=== PATIENT | male | born 1940 | race Caucasian/White ===

== ENCOUNTER 2017-11-03 13:54 | Emergency (ER) | payer OTHER ==
[~2017-11-03] VITALS: Ht 177.8 cm; Wt 110.2 kg
[~2017-11-03 13:54] MED LIST: ASPI325 PO; BUDE6HFA INH; CARV6.25 PO; CLOP75 PO; Cipro500 MG PO; DOCU100 PO; Diabeta2.5 MG PO; ERGO400 PO; Flomax0.4 MG PO; GLIP2.5ER; GLYB1.5 PO; GLYB5 PO; HTN; LISI5 PO; LIVALO2 MG PO; METF500 PO; METF850; METF850 PO; METO10 PO; MULTI-VITAMIN1 EACH PO; MULVIT PO; OMEP20ER; ONDA4 PO; OXYACE5T PO; PROAIR RESPICL90 MCG INH; Prinivil10 MG PO; RANI150 PO; RANO500T PO; TAMS.4ER PO; Toprol Xl25 MG PO; [UNRECOGNIZED DRUG - REMARK]
[2017-11-03] MEDS ORDERED: GLIM2 PO (14:21)
[2017-11-03] MEDS ORDERED: LIVALO2 MG PO (14:21)
[2017-11-03] MEDS ORDERED: CEFTIN PO (14:23)
[2017-11-03] MEDS ORDERED: METF850 PO (14:23)
[2017-11-03 15:02] LABS: BASOPHILS ABSOLUTE AUTO 0.06 K/mm3 (0.00-0.23); BASOPHILS PERCENT AUTO 0 % (0-2); EOSINOPHILS PERCENT AUTO 1 % (0-6); Hematocrit 44.1 % (37.0-53.0); Hemoglobin 14.2 g/dL (13.5-17.5); IMMATURE GRAN PERCENT AUTO 1 % (0-1); LYMPHOCYTES ABSOLUTE AUTO 1.66 K/mm3 (0.84-5.20); LYMPHOCYTES PERCENT AUTO 12 % (21-46); MONOCYTES ABSOLUTE AUTO 1.11 K/mm3 (0.16-1.47); MONOCYTES PERCENT AUTO 8 % (4-13); Mean Corpuscular HGB 31.7 pg (26.0-34.0); Mean Corpuscular HGB Conc 32.2 g/dL (31.5-36.5); Mean Corpuscular Volume 98 fL (80-100); Mean Platelet Volume 11.9 fL (9.1-12.4); NEUTROPHILS ABSOLUTE AUTO 10.81 K/mm3 (1.96-9.15); NEUTROPHILS PERCENT AUTO 78 % (41-73); Platelet Count 233 K/mm3 (150-400); RDW Standard Deviation 46.5 fL (35.1-46.3); Red Blood Cell Count 4.48 M/mm3 (4.30-5.90); White Blood Cell Count 13.94 K/mm3 (4.00-11.30)
[2017-11-03 15:07] LABS: Base Excess Venous 0.8 mmol/L; Bicarbonate Venous 24.3 mmol/L (24.0-30.0); PCO2 Venous 50.7 mmHg (38-42); PO2 Venous 71.8 mmHg (38-42); pH Blood Venous 7.33 (7.34-7.37)
[2017-11-03 15:19] LABS: Alanine Aminotransfer (ALT/SGP 28 U/L (12-78); Albumin, Blood 3.2 g/dL (3.4-5.0); Albumin/Globulin Ratio 0.7 (0.8-1.8); Alk Phos 115 U/L (50-136); Anion Gap 7 mmol/L (6-16); Aspartate Aminotrans (AST/SGOT 23 U/L (12-37); Bilirubin, Total 0.2 mg/dL (0.1-1.0); Blood Urea Nitrogen 24 mg/dL (8-24); Bun/Creatinine Ratio 21.1 (12.0-20.0); CO2, Blood 27 mmol/L (21-32); Calcium, Blood 9.3 mg/dL (8.5-10.1); Chloride, Blood 106 mmol/L (98-108); Creatinine, Blood 1.14 mg/dL (0.60-1.20); Globulin, Blood 4.3 g/dL (2.2-4.0); Glomerular Filtration Rate >60 (60-); Glucose, Blood 132 mg/dL (70-99); Magnesium, Blood 1.9 mg/dL (1.6-2.4); Potassium, Blood 4.2 mmol/L (3.5-5.5); Sodium, Blood 140 mmol/L (136-145); Total Protein, Blood 7.5 g/dL (6.4-8.2)
[2017-11-03 15:24] LABS: Troponin I <0.015 ng/mL (0.000-0.040)
== END 2017-11-03 16:17 | disposition home or self-care (01) ==
LOC: ER 13:54
PROVIDERS: Emergency Medicine
DX: R41.0 Disorientation, unspecified (principal); N48.22 Cellulitis of corpus cavernosum and penis; Z88.5 Allergy status to narcotic agent; Z91.018 Allergy to other foods; Z88.8 Allergy status to other drugs, medicaments and biological substances; Z79.899 Other long term (current) drug therapy; Z79.84 Long term (current) use of oral hypoglycemic drugs; Z79.82 Long term (current) use of aspirin; Z87.891 Personal history of nicotine dependence
CPT/HCPCS: 36415; 70450; 71046; 76857; 80053; 82803; 83735; 83880; 84443; 84484; 85025; 93005; 93010; 96360; 96361; 99284; J7030

== ENCOUNTER 2018-12-15 18:16 | Inpatient (IN) | payer OTHER ==
[~2018-12-15] VITALS: Ht 177.8 cm; Wt 114.0 kg
[~2018-12-15 18:16] MED LIST changes: -ASPI325 PO; +ASPI325EC PO; +Amaryl1 MG PO; +CEFTIN PO; +FAMO20 PO
[2018-12-15 18:55] LABS: BASOPHILS ABSOLUTE AUTO 0.06 K/mm3 (0.00-0.23); BASOPHILS PERCENT AUTO 0 % (0-2); EOSINOPHILS ABSOLUTE AUTO 0.01 K/mm3 (0.00-0.68); EOSINOPHILS PERCENT AUTO 0 % (0-6); Hematocrit 46.8 % (37.0-53.0); IMMATURE GRAN ABSOLUTE AUTO 0.11 K/mm3 (0.00-0.10); IMMATURE GRAN PERCENT AUTO 1 % (0-1); LYMPHOCYTES PERCENT AUTO 5 % (21-46); MONOCYTES ABSOLUTE AUTO 1.82 K/mm3 (0.16-1.47); MONOCYTES PERCENT AUTO 9 % (4-13); Mean Corpuscular HGB 31.3 pg (26.0-34.0); Mean Corpuscular HGB Conc 32.1 g/dL (31.5-36.5); Mean Corpuscular Volume 98 fL (80-100); NEUTROPHILS ABSOLUTE AUTO 17.89 K/mm3 (1.96-9.15); NEUTROPHILS PERCENT AUTO 85 % (41-73); Platelet Count 228 K/mm3 (150-400); RDW Coefficient Variation 14.6 % (11.7-14.2); RDW Standard Deviation 53.3 fL (35.1-46.3); Red Blood Cell Count 4.79 M/mm3 (4.30-5.90); White Blood Cell Count 20.99 K/mm3 (4.00-11.30)
[2018-12-15 19:51] LABS: Alanine Aminotransfer (ALT/SGP 25 U/L (12-78); Albumin, Blood 3.3 g/dL (3.4-5.0); Albumin/Globulin Ratio 0.7 (0.8-1.8); Alk Phos 129 U/L (50-136); Anion Gap 10 mmol/L (6-16); Aspartate Aminotrans (AST/SGOT 21 U/L (12-37); Bilirubin, Total 0.5 mg/dL (0.1-1.0); Blood Urea Nitrogen 30 mg/dL (8-24); Bun/Creatinine Ratio 15.7 (12.0-20.0); CO2, Blood 21 mmol/L (21-32); Calcium, Blood 9.3 mg/dL (8.5-10.1); Chloride, Blood 107 mmol/L (98-108); Creatinine, Blood 1.91 mg/dL (0.60-1.20); Globulin, Blood 4.7 g/dL (2.2-4.0); Glomerular Filtration Rate 36 (60-); Glucose, Blood 235 mg/dL (70-99); Potassium, Blood 4.6 mmol/L (3.5-5.5); Sodium, Blood 138 mmol/L (136-145); Troponin I <0.015 ng/mL (0.000-0.040)
[2018-12-15] MEDS ORDERED: Central-Vite1 EAC3 PO (21:11)
[2018-12-15] MEDS ORDERED: LISI5 PO (21:11)
[2018-12-15] MEDS ORDERED: CHOL10002 PO (23:46)
[2018-12-15] MEDS ORDERED: ASCO500 PO (23:46)
[2018-12-15] MEDS ORDERED: ALBU90OI61 INH (23:47)
[2018-12-15] MEDS ORDERED: ACET325 PO (23:48)
[2018-12-15] MEDS ORDERED: YOUNG LIVING OILS TOP (23:50)
[2018-12-15] MEDS ORDERED: [UNRECOGNIZED DRUG - OTHER] TOP (23:51)
[2018-12-15] MEDS ORDERED: NINGXIA RED PO (23:55)
[2018-12-16 05:39] LABS: BASOPHILS ABSOLUTE AUTO 0.03 K/mm3 (0.00-0.23); BASOPHILS PERCENT AUTO 0 % (0-2); EOSINOPHILS PERCENT AUTO 0 % (0-6); Hematocrit 44.1 % (37.0-53.0); Hemoglobin 13.9 g/dL (13.5-17.5); IMMATURE GRAN ABSOLUTE AUTO 0.14 K/mm3 (0.00-0.10); IMMATURE GRAN PERCENT AUTO 1 % (0-1); LYMPHOCYTES ABSOLUTE AUTO 0.51 K/mm3 (0.84-5.20); LYMPHOCYTES PERCENT AUTO 2 % (21-46); MONOCYTES ABSOLUTE AUTO 0.26 K/mm3 (0.16-1.47); MONOCYTES PERCENT AUTO 1 % (4-13); Mean Corpuscular HGB 30.5 pg (26.0-34.0); Mean Corpuscular HGB Conc 31.5 g/dL (31.5-36.5); Mean Corpuscular Volume 97 fL (80-100); Mean Platelet Volume 10.3 fL (9.1-12.4); NEUTROPHILS ABSOLUTE AUTO 19.89 K/mm3 (1.96-9.15); NEUTROPHILS PERCENT AUTO 96 % (41-73); Platelet Count 242 K/mm3 (150-400); RDW Coefficient Variation 14.6 % (11.7-14.2); RDW Standard Deviation 52.4 fL (35.1-46.3); Red Blood Cell Count 4.55 M/mm3 (4.30-5.90); White Blood Cell Count 20.83 K/mm3 (4.00-11.30)
[2018-12-16 05:59] LABS: Albumin, Blood 2.9 g/dL (3.4-5.0); Albumin/Globulin Ratio 0.6 (0.8-1.8); Bilirubin, Total 0.4 mg/dL (0.1-1.0); Bun/Creatinine Ratio 17.5 (12.0-20.0); Calcium, Blood 8.7 mg/dL (8.5-10.1); Creatinine, Blood 1.66 mg/dL (0.60-1.20); Globulin, Blood 4.6 g/dL (2.2-4.0); Potassium, Blood 4.7 mmol/L (3.5-5.5); Total Protein, Blood 7.5 g/dL (6.4-8.2)
--- NOTE | 2018-12-16 06:00 | NUR ---
sHIFT SUMMARY: pT REMAINED ON 2 LITER o2 OVERNIGHT. lUNGS DIMINISHED. Pt has sleep apnea and wakes up often and starts making loud noises and are difficult to understand. His significant other states that he does this at home and is not new. Was unable to get sputum sample last pm- does not have productive cough. Pt on tele- in sinus rhythm 70.
--- NOTE | 2018-12-16 14:18 | NUR ---
pt gave permission to access charts and assist in care on 12/16/2018.
--- NOTE | 2018-12-16 17:45 | NUR ---
SHIFT SUMMARY PT AXO TO SELF, FAMILY AND FOLLOWING DIRECTIONS THOUGH SOME CONFUSION AT TIMES. VSS. PHSYICAL THERAPY IN TO EVALUATE, SEE NOTE. PT UP WITH SBA. IV PATENT AND SALINE LOCKED. PT DENIES SOB THOUGH IS SOB WITH CONVERSATION AND EXERTION. BED IN LOW POSITION, CALL LIGHT WITHIN REACH AND SPOUSE PRESENT IN THE ROOM THROUGHOUT THE DAY.
--- NOTE | 2018-12-17 05:07 | NUR ---
Shift summary: Pt slept well overnight with occasional verbal outburst. at bedside. Pt started with aroma therapy by - states it seems to calm him down. Tolerating antibiotics well. No sputum so unable to get sputum sample. Telemetry on - NSR 78 per case monitor
[2018-12-17 05:14] LABS: BASOPHILS ABSOLUTE AUTO 0.04 K/mm3 (0.00-0.23); BASOPHILS PERCENT AUTO 0 % (0-2); EOSINOPHILS PERCENT AUTO 0 % (0-6); Hematocrit 43.8 % (37.0-53.0); Hemoglobin 13.9 g/dL (13.5-17.5); IMMATURE GRAN PERCENT AUTO 1 % (0-1); LYMPHOCYTES ABSOLUTE AUTO 0.65 K/mm3 (0.84-5.20); LYMPHOCYTES PERCENT AUTO 2 % (21-46); MONOCYTES ABSOLUTE AUTO 0.73 K/mm3 (0.16-1.47); MONOCYTES PERCENT AUTO 3 % (4-13); Mean Corpuscular HGB 30.5 pg (26.0-34.0); Mean Corpuscular HGB Conc 31.7 g/dL (31.5-36.5); Mean Corpuscular Volume 96 fL (80-100); Mean Platelet Volume 10.5 fL (9.1-12.4); NEUTROPHILS ABSOLUTE AUTO 27.37 K/mm3 (1.96-9.15); NEUTROPHILS PERCENT AUTO 94 % (41-73); Platelet Count 238 K/mm3 (150-400); RDW Coefficient Variation 14.6 % (11.7-14.2); RDW Standard Deviation 51.7 fL (35.1-46.3); Red Blood Cell Count 4.56 M/mm3 (4.30-5.90); White Blood Cell Count 29.09 K/mm3 (4.00-11.30)
[2018-12-17 05:55] LABS: Albumin, Blood 2.8 g/dL (3.4-5.0); Albumin/Globulin Ratio 0.6 (0.8-1.8); Bilirubin, Total 0.2 mg/dL (0.1-1.0); Bun/Creatinine Ratio 27.9 (12.0-20.0); Calcium, Blood 8.9 mg/dL (8.5-10.1); Creatinine, Blood 1.36 mg/dL (0.60-1.20); Globulin, Blood 4.6 g/dL (2.2-4.0); Magnesium, Blood 2.4 mg/dL (1.6-2.4); Phosphorus, Blood 2.7 mg/dL (2.5-4.9); Potassium, Blood 4.9 mmol/L (3.5-5.5); Total Protein, Blood 7.4 g/dL (6.4-8.2)
[2018-12-17] MEDS ORDERED: AZIT250 PO (12:35)
[2018-12-17] MEDS ORDERED: GUAI600T33 (12:36)
[2018-12-17] MEDS ORDERED: CEFP200 PO (12:36)
[2018-12-17] MEDS ORDERED: DULERA 200 MCG/13 GM INH (12:37)
[2018-12-17] MEDS ORDERED: THERA1 EACH PO (12:38)
[2018-12-17] MEDS ORDERED: PRED10 (12:40)
--- NOTE | 2018-12-17 14:47 | NUR ---
1355 PT DISCHARGED HOME VIA PERSONAL VEHICLE ACCOMPANIED AND DRIVEN BY FRIEND. PT ESCORTED TO ENTRANCE VIA W/C BY PRODUCT SALES REPRESENTATIVE. IV REMOVED. D/C PAPERWORK REVIEWED WITH PT AND COPY PROVIDED. NEW RX FAXED TO [facility] PER PT REQUEST. NO NEW CHANGES OR CONCERNS.
== END 2018-12-17 13:55 | disposition home or self-care (01) | DRG 202 ==
LOC: ER 18:16 → MEDS 21:20 → ENPENDDIS 12-17 10:52 → MEDS 12-17 13:55
PROVIDERS: Emergency Medicine; Hospitalist; ADMIT Internal Medicine
DX: J20.9 Acute bronchitis, unspecified (principal); N17.9 Acute kidney failure, unspecified; J43.9 Emphysema, unspecified; Z79.82 Long term (current) use of aspirin; Z79.84 Long term (current) use of oral hypoglycemic drugs; I25.10 Atherosclerotic heart disease of native coronary artery without angina pectoris; G89.29 Other chronic pain; G47.33 Obstructive sleep apnea (adult) (pediatric); Z95.1 Presence of aortocoronary bypass graft; K21.9 Gastro-esophageal reflux disease without esophagitis; E11.42 Type 2 diabetes mellitus with diabetic polyneuropathy; N18.3 Chronic kidney disease, stage 3 (moderate); E11.22 Type 2 diabetes mellitus with diabetic chronic kidney disease; E78.5 Hyperlipidemia, unspecified; E66.9 Obesity, unspecified; Z68.34 Body mass index [BMI] 34.0-34.9, adult; I12.9 Hypertensive chronic kidney disease with stage 1 through stage 4 chronic kidney disease, or unspecified chronic kidney disease; Z87.891 Personal history of nicotine dependence; Z91.14 Patient's other noncompliance with medication regimen
CPT/HCPCS: 36415; 71046; 71250; 80053; 82947; 83605; 83735; 84100; 84145; 84484; 85025; 87040; 93005; 93010; 94640; 94644; 94760; 96361; 96365; 96375; 97161; 97165; 97530; 97535; 99285-25; J0456; J0696; J1650; J2930; J7030; J7050

== ENCOUNTER 2019-04-22 09:23 | Emergency (ER) | payer OTHER ==
[~2019-04-22] VITALS: Ht 177.8 cm; Wt 111.1 kg
[~2019-04-22 09:23] MED LIST changes: +ACET325 PO; +ALBU90OI61 INH; +ASCO500 PO; +AZIT250 PO; +CEFP200 PO; +CHOL10002 PO; +Central-Vite1 EAC3 PO; +DULERA 200 MCG/13 GM INH; +GUAI600T33; +NINGXIA RED PO; +PRED10; +THERA1 EACH PO; +YOUNG LIVING OILS TOP; +[UNRECOGNIZED DRUG - OTHER] TOP
== END 2019-04-22 10:50 | disposition home or self-care (01) ==
LOC: ER 09:23
DX: S00.83XA Contusion of other part of head, initial encounter (principal); V43.52XA Car driver injured in collision with other type car in traffic accident, initial encounter; E11.22 Type 2 diabetes mellitus with diabetic chronic kidney disease; N18.9 Chronic kidney disease, unspecified; J44.9 Chronic obstructive pulmonary disease, unspecified; I25.10 Atherosclerotic heart disease of native coronary artery without angina pectoris; K21.9 Gastro-esophageal reflux disease without esophagitis; Z88.5 Allergy status to narcotic agent; Z88.8 Allergy status to other drugs, medicaments and biological substances; Z91.018 Allergy to other foods; Z79.899 Other long term (current) drug therapy; Z79.82 Long term (current) use of aspirin; Z79.84 Long term (current) use of oral hypoglycemic drugs; Z79.52 Long term (current) use of systemic steroids
CPT/HCPCS: 36415; 70450; 80061; 83036; 99284-25

== ENCOUNTER 2019-08-12 14:45 | Inpatient (IN) | payer OTHER ==
[~2019-08-12] VITALS: Ht 177.8 cm; Wt 114.4 kg
[~2019-08-12 14:45] MED LIST changes: -ASCO500 PO; -ASPI325EC PO; -Amaryl1 MG PO; -CHOL10002 PO; -THERA1 EACH PO; -Toprol Xl25 MG PO
[2019-08-12] MEDS ORDERED: LISI5 PO (15:27)
[2019-08-12] MEDS ORDERED: METF500 PO (15:27)
[2019-08-12] MEDS ORDERED: Amaryl1 MG PO (15:27)
[2019-08-12] MEDS ORDERED: Toprol Xl25 MG PO (15:27)
[2019-08-12] MEDS ORDERED: ASPI325EC PO (15:28)
[2019-08-12] MEDS ORDERED: THERA1 EACH PO (15:28)
[2019-08-12] MEDS ORDERED: ASCO500 PO (15:28)
[2019-08-12] MEDS ORDERED: VITAMIN D325 MCG PO (15:28)
[2019-08-12 15:37] LABS: BASOPHILS ABSOLUTE AUTO 0.04 K/mm3 (0.00-0.23); BASOPHILS PERCENT AUTO 0 % (0-2); EOSINOPHILS ABSOLUTE AUTO 0.04 K/mm3 (0.00-0.68); EOSINOPHILS PERCENT AUTO 0 % (0-6); Hematocrit 41.3 % (37.0-53.0); Hemoglobin 13.1 g/dL (13.5-17.5); IMMATURE GRAN ABSOLUTE AUTO 0.12 K/mm3 (0.00-0.10); IMMATURE GRAN PERCENT AUTO 1 % (0-1); LYMPHOCYTES ABSOLUTE AUTO 0.79 K/mm3 (0.84-5.20); LYMPHOCYTES PERCENT AUTO 7 % (21-46); MONOCYTES ABSOLUTE AUTO 1.15 K/mm3 (0.16-1.47); MONOCYTES PERCENT AUTO 11 % (4-13); Mean Corpuscular HGB Conc 31.7 g/dL (31.5-36.5); Mean Corpuscular Volume 98 fL (80-100); Mean Platelet Volume 10.8 fL (9.1-12.4); NEUTROPHILS ABSOLUTE AUTO 8.67 K/mm3 (1.96-9.15); NEUTROPHILS PERCENT AUTO 80 % (41-73); Platelet Count 195 K/mm3 (150-400); RDW Coefficient Variation 14.4 % (11.7-14.2); RDW Standard Deviation 51.9 fL (35.1-46.3); Red Blood Cell Count 4.23 M/mm3 (4.30-5.90); White Blood Cell Count 10.81 K/mm3 (4.00-11.30)
[2019-08-12] MEDS ORDERED: [UNRECOGNIZED DRUG - OTHER] PO (15:45)
[2019-08-12 15:49] LABS: Bun/Creatinine Ratio 14.7 (12.0-20.0); Calcium, Blood 9.1 mg/dL (8.5-10.1); Creatinine, Blood 1.77 mg/dL (0.60-1.20); Potassium, Blood 4.2 mmol/L (3.5-5.5)
[2019-08-12 16:00] LABS: International Normalized Ratio 0.99; Prothrombin Time Results 10.6 Sec (9.7-11.5)
[2019-08-12 19:23] LABS: Source, Urine Clean Catch
[2019-08-12 19:27] LABS: Bilirubin, Urine Neg (Neg); Blood, Urine 2+ (Neg); Glucose Qualitative, Urine Neg (Neg); Ketones, Urine Neg (Neg); Leukocyte Esterase, Urine 2+ (Neg); Nitrite, Urine Pos (Neg); Protein, Urine 2+ (Neg); Specific Gravity, Urine 1.025 (1.003-1.022); Urobilinogen, Urine NORM (Normal)
[2019-08-12 19:41] LABS: Appearance, Urine Clear (Clear); Color, Urine Yellow (P-Yellow)
[2019-08-12 19:43] LABS: Bacteria Many /hpf; Squamous Epithelial Cells Not Seen /hpf (Few)
--- NOTE | 2019-08-12 21:07 | NUR ---
ARRIVAL PT ARRIVED TO UNIT FROM ER VIA GURNEY. TRANSFERED WITH SLIDE SHEET. PT HAVING SOME SOB R/T PAIN, LEFT ON 3L VIA NASAL CANULA. RIGHT LEG PRONATED OUT. CAP REFILL <3, SENSATION INTACT, WIGGLES TOES. PULSE PRESENT BUT WEAK, EQUAL TO LEFT FOOT THOUGH. MEDICATED FOR PAIN WITH FENTANYL AND PATIENT ABLE TO FALL ASLEEP, REPORTS RELIEF. SIG OTHER AT BEDSIDE. PT ORIENTED TO ROOM CALL LIGHT IN REACH.
--- NOTE | 2019-08-13 02:21 | NUR ---
PT CALLING OUT IN SLEEP. SIG OTHER AND PT STATE THAT HE HAS DONE THIS BEFORE PREVIOUSLY, WHEN ASKED IF HE IS IN PAIN HE STATES THAT IT IS NOT BAD 6 OR 7 OUT OF 10. HE SAYS THAT IT IS SOME ANXIETY.
--- NOTE | 2019-08-13 04:16 | NUR ---
SHIFT SUMMARY RIGHT HIP FX, SOME SWELLING AND REDNESS ON HIP. PULSE PALPABLE, CAP <3 WIGGLES TOES. PT [id number] ON ADMISSION, SOME CONFUSION DURING NIGHT. SIGNIFICANT OTHER AT BEDSIDE FOR COMFORT AND REASSURANCE. PT DANGLED LEGS OVER SIDE OF BED ONCE AND STATED THAT HE WAS CONFUSED AND NOT SURE WHAT HE WAS DOING. PATIENT CALLS OUT FREQUENTLY WHILE SLEEPING, WHEN ASKED HE STATES PAIN IS TOLERABLE AND IT IS SOME ANXIETY. PT REPORTS DOING IT PREVIOUSLY YEARS AGO WHEN . PT VOIDING, CALLING APPROPRIATLY FOR URINAL. MEDICATED FOR PAIN WITH FENT 50 X2. TITRATED DOWN TO 1L O2, PATIENT SNORES AND BREATHES THROUGH MOUTH WHILE SLEEPING. PLAN IS TO GO TO OR TODAY.
[2019-08-13 04:28] LABS: BASOPHILS ABSOLUTE AUTO 0.06 K/mm3 (0.00-0.23); BASOPHILS PERCENT AUTO 1 % (0-2); EOSINOPHILS ABSOLUTE AUTO 0.06 K/mm3 (0.00-0.68); EOSINOPHILS PERCENT AUTO 1 % (0-6); Hematocrit 40.3 % (37.0-53.0); Hemoglobin 12.5 g/dL (13.5-17.5); IMMATURE GRAN ABSOLUTE AUTO 0.09 K/mm3 (0.00-0.10); IMMATURE GRAN PERCENT AUTO 1 % (0-1); LYMPHOCYTES ABSOLUTE AUTO 0.98 K/mm3 (0.84-5.20); LYMPHOCYTES PERCENT AUTO 9 % (21-46); MONOCYTES PERCENT AUTO 11 % (4-13); Mean Corpuscular HGB 30.3 pg (26.0-34.0); Mean Corpuscular Volume 98 fL (80-100); Mean Platelet Volume 10.8 fL (9.1-12.4); NEUTROPHILS ABSOLUTE AUTO 8.63 K/mm3 (1.96-9.15); NEUTROPHILS PERCENT AUTO 78 % (41-73); Platelet Count 177 K/mm3 (150-400); RDW Coefficient Variation 14.3 % (11.7-14.2); RDW Standard Deviation 51.7 fL (35.1-46.3); Red Blood Cell Count 4.13 M/mm3 (4.30-5.90); White Blood Cell Count 11.02 K/mm3 (4.00-11.30)
[2019-08-13 04:50] LABS: Bun/Creatinine Ratio 13.7 (12.0-20.0); Calcium, Blood 8.6 mg/dL (8.5-10.1); Creatinine, Blood 1.61 mg/dL (0.60-1.20); Potassium, Blood 4.2 mmol/L (3.5-5.5)
--- NOTE | 2019-08-13 09:18 | NUR ---
CONSULT CALLED TO DR CORDERO OFFICE.
--- NOTE | 2019-08-13 11:40 | NUR ---
PATIENT TO DAY SURGERY AT THIS TIME. CAREGIVER WAS IN TOUCH WITH CHERELLE BY PHONE.
--- NOTE | 2019-08-13 12:18 | NUR ---
PT TO SDS VIA BED FROM SURG FLOOR ROOM. History, Chart, Medications and Allergies reviewed before start of procedure.Patient confirms NPO status and agrees with scheduled surgery. Surgical site prepped with 2% Chlorhexidine cloth wipe. DIMINISHED LUNGS SOUND BILATERAL LOWER LOBES.
--- NOTE | 2019-08-13 13:20 | NUR ---
08/13/19 1320 Cristal Damico ANTIBIOTICS STARTED BY PRE-OP RN. SEE EMAR.
--- NOTE | 2019-08-13 15:30 | NUR ---
PATIENT RETURNED TO ROOM FROM PACU. AWAKE, GROGGY. DENIES NAUSEA, PAIN. VSS. GAUZE DRESSINGS WITH SURGICAL TAPE X 3 TO R HIP, CD&I. WIGGLES FEET. PPP. LS COARSE IN BASES. HRR. BT'S HYPO. PATIENT INCONT URINE, REQUIRED BED CHANGE, ATTENDS PLACED. ICE TO R HIP. PAS IN PLACE. CAREGIVER AT BEDSIDE. BED ALARM ON. CONT TO MONITOR.
--- NOTE | 2019-08-13 18:15 | NUR ---
SHIFT SUMMARY VSS. PATIENT SLEPT INTEMITANTLY SINCE ARRIVAL TO FLOOR. IV PAIN PIPE INSPECTOR WITH GOOD RESULTS PER PATIENT. R HIP DRESSING D&I. WIGGLES TOES. TOLERATED 70% OF DINNER W/O C/O. DENIES NEED TO VOID AT THIS TIME (INCONT UPON ARRIVAL TO FLOOR.) CAREGIVER AT BEDSIDE. PATIENT SPOKE WITH SON VIA TELEPHONE. NO ACUTE CHANGES OR C/O AT THIS TIME.
--- NOTE | 2019-08-14 01:16 | NUR ---
PT CALLING NURSE FOR PAIN MEDS,HOWEVER VISITOR AT BEDSIDE STATES THEIR PREFERANCE IS NOT TO TAKE PAIN MEDS.NOT TIME FOR ANOTHER DOSE OF IV PAIN MEDS PER ORDER AND NO PO PAIN MEDS ORDERED. PT HAS BEEN REFUSING REPOSITIONING AND VERB TOO PAINFUL. I DISCUSSED WITH PT AND VISITOR SINCE PT HAS NOT TOLERATED REPOSITIONING AND ACTIVITY TONIGHT, IT IS LIKELY HE WILL HAVE DIFFICULTY PARTICIPATING IN PHYSICAL THERAPY IF PAIN IS UNCONTROLLED, AND VISITOR STATES THEY ARE ANXIOUS FOR PT TO D/C TO HOME.AFTER DISCUSSION WITH PT AND S/O, PT REQUESTED "PERCOCET" PT HAS ELEVATED CREATININE LEVEL, SO UNABLE TO USE ANTI INFLAMMATORIES WELL.CALL OUT TO DR FULTON COVERING FOR [employer] WAITING FOR RETURN CALL.
--- NOTE | 2019-08-14 07:36 | NUR ---
SUMMARY PT REQUIRING O2/OXIMYZER PLACED IN MOUTH FOR GODWIN TONIGHT TO PREVENT DESATS. S/O STATES THEY DO NOT HAVWE GODWIN AT HOME WITH THIS PT DUE TO USING ESSENTIAL OILS.STATES BRINGING OILS IN TODAY. PT WAS ABLE TO REPOSITION AFTER RECEIVING PO PAIN MED. HAS SCABBED LESIONS TO TIP OF PENIS AND SCROTUM.
[2019-08-14 11:11] LABS: BASOPHILS ABSOLUTE AUTO 0.03 K/mm3 (0.00-0.23); BASOPHILS PERCENT AUTO 0 % (0-2); EOSINOPHILS ABSOLUTE AUTO 0.02 K/mm3 (0.00-0.68); EOSINOPHILS PERCENT AUTO 0 % (0-6); Hematocrit 36.8 % (37.0-53.0); Hemoglobin 11.7 g/dL (13.5-17.5); IMMATURE GRAN ABSOLUTE AUTO 0.11 K/mm3 (0.00-0.10); IMMATURE GRAN PERCENT AUTO 1 % (0-1); LYMPHOCYTES ABSOLUTE AUTO 0.95 K/mm3 (0.84-5.20); LYMPHOCYTES PERCENT AUTO 7 % (21-46); MONOCYTES ABSOLUTE AUTO 1.12 K/mm3 (0.16-1.47); MONOCYTES PERCENT AUTO 8 % (4-13); Mean Corpuscular HGB 31.2 pg (26.0-34.0); Mean Corpuscular HGB Conc 31.8 g/dL (31.5-36.5); Mean Corpuscular Volume 98 fL (80-100); NEUTROPHILS ABSOLUTE AUTO 12.12 K/mm3 (1.96-9.15); NEUTROPHILS PERCENT AUTO 85 % (41-73); Platelet Count 188 K/mm3 (150-400); RDW Coefficient Variation 13.9 % (11.7-14.2); RDW Standard Deviation 50.4 fL (35.1-46.3); Red Blood Cell Count 3.75 M/mm3 (4.30-5.90); White Blood Cell Count 14.35 K/mm3 (4.00-11.30)
[2019-08-14 11:32] LABS: Bun/Creatinine Ratio 15.2 (12.0-20.0); Calcium, Blood 9.1 mg/dL (8.5-10.1); Creatinine, Blood 1.71 mg/dL (0.60-1.20); Potassium, Blood 4.4 mmol/L (3.5-5.5)
[2019-08-14 13:35] LABS: Source, Urine Clean Catch
[2019-08-14 13:42] LABS: Bilirubin, Urine Neg (Neg); Blood, Urine 4+ (Neg); Color, Urine Yellow (P-Yellow); Glucose Qualitative, Urine 1+ (Neg); Ketones, Urine Neg (Neg); Leukocyte Esterase, Urine 3+ (Neg); Nitrite, Urine Neg (Neg); Protein, Urine 1+ (Neg); Specific Gravity, Urine 1.015 (1.003-1.022); Urobilinogen, Urine NORM (Normal)
[2019-08-14 14:27] LABS: Appearance, Urine Clear (Clear)
[2019-08-14 14:28] LABS: White Blood Cells, Urine 25-50 /hpf (0-5)
[2019-08-14 14:29] LABS: Bacteria Few /hpf; Squamous Epithelial Cells Not Seen /hpf (Few)
--- NOTE | 2019-08-14 19:11 | NUR ---
SHIFT SUMMARY PATIENT STATES PAIN TOLERABLE. SLEPT INTERMITANTLY T/O SHIFT. UP TO CHAIR WITH PT; 3 PERSON ASSIST BACK TO BED. DRESSINGS TO R HIP CDI. CIRC CHECKS WNL. TAKING PO WELL. NO ACUTE CHANGES OR C/O AT THIS TIME.
--- NOTE | 2019-08-15 05:13 | NUR ---
SHIFT SUMMARY: YOSSI HAS RESTED INTERMITTENTLY THROUGHOUT THE NIGHT. HE CONTINUALLY PULLS AT HIS PULSE OX, NC AND CLOTHING/BEDDING. HE DOES REORIENT AFTER BEING AWAKENED. HIS SATURATIONS DIP INTO THE 80s INTERMITTENTLY AND DO RECOVER WITHIN A MINUTE TO A MINUTE AND A HALF. HE REPORTS THAT HE IS NOT ABLE TO TOLERATE THE CPAP AND HASN'T WORN IT FOR YEARS. HIS PARTNER/CAREGIVER REPORTS THAT THEY USE ESSENTIAL OILS AND HAVE NO PROBLEMS AT HOME. HE HAS A WEAK COUGH EFFORT AND DOES NOT FOLLOW RECOMMENDATION TO DB&C. HE HAD BEEN USING THE URINAL WITHOUT DIFFICULTY EARLY IN THE SHIFT, BUT REPORTED BEING UNABLE TO VOID RECENTLY. HE IS TOLERATING PO INTAKE WELL. HE IS LYING IN BED WITH HIS CALL LIGHT IN REACH. HE DOES NOT REMEMBER TO USE HIS CALL LIGHT.
--- NOTE | 2019-08-15 11:55 | NUR ---
DR ARMENDARIZ HERE TO SEE PT, S/O HERE. DISCUSSED PT'S STATUS INCLUDING CONFUSION, LABS.
--- NOTE | 2019-08-15 17:51 | NUR ---
SHIFT SUMMARY PT EATING AND DRINKING. PT BEEN MED FOR PAIN. PT BEEN ASSISTED WITH ADL'S PRN. PT BEEN REPOSITIONED MULT TIMES. PT BEEN ENC TO USE I/S. PT FAMILY IN/OUT OF ROOM TODAY. BED ALARM IN PLACE. PT CONT TO BE CONFUSED AT TIMES.
[2019-08-16 05:04] LABS: BASOPHILS ABSOLUTE AUTO 0.05 K/mm3 (0.00-0.23); BASOPHILS PERCENT AUTO 1 % (0-2); EOSINOPHILS ABSOLUTE AUTO 0.15 K/mm3 (0.00-0.68); EOSINOPHILS PERCENT AUTO 1 % (0-6); Hematocrit 36.1 % (37.0-53.0); Hemoglobin 11.4 g/dL (13.5-17.5); IMMATURE GRAN ABSOLUTE AUTO 0.18 K/mm3 (0.00-0.10); IMMATURE GRAN PERCENT AUTO 2 % (0-1); LYMPHOCYTES ABSOLUTE AUTO 0.87 K/mm3 (0.84-5.20); LYMPHOCYTES PERCENT AUTO 8 % (21-46); MONOCYTES ABSOLUTE AUTO 0.79 K/mm3 (0.16-1.47); MONOCYTES PERCENT AUTO 8 % (4-13); Mean Corpuscular HGB 30.3 pg (26.0-34.0); Mean Corpuscular HGB Conc 31.6 g/dL (31.5-36.5); Mean Corpuscular Volume 96 fL (80-100); Mean Platelet Volume 10.1 fL (9.1-12.4); NEUTROPHILS ABSOLUTE AUTO 8.53 K/mm3 (1.96-9.15); NEUTROPHILS PERCENT AUTO 81 % (41-73); Platelet Count 208 K/mm3 (150-400); RDW Standard Deviation 49.7 fL (35.1-46.3); Red Blood Cell Count 3.76 M/mm3 (4.30-5.90); White Blood Cell Count 10.57 K/mm3 (4.00-11.30)
[2019-08-16 05:23] LABS: Albumin, Blood 2.6 g/dL (3.4-5.0); Albumin/Globulin Ratio 0.6 (0.8-1.8); Bilirubin, Total 0.3 mg/dL (0.1-1.0); Bun/Creatinine Ratio 19.5 (12.0-20.0); Calcium, Blood 9.3 mg/dL (8.5-10.1); Creatinine, Blood 1.69 mg/dL (0.60-1.20); Globulin, Blood 4.3 g/dL (2.2-4.0); Potassium, Blood 4.7 mmol/L (3.5-5.5); Total Protein, Blood 6.9 g/dL (6.4-8.2)
--- NOTE | 2019-08-16 05:46 | NUR ---
SHIFT SUMMARY: YOSSI RESTED VERY LITTLE THIS SHIFT. HE WAS TEARFUL AT TIMES STATING THAT HE WAS CONCERED ABOUT HIS LEAVING HIM. HE WAS REASSURED. HE DID PEEL OFF HIS AQUACELL DRESSINGS. ALL THREE INCISION SITES WERE CLEANED AND NEW AQUACELL DRESSINGS WERE PLACED. HE IS TOLERATING PO INTAKE WELL. HE IS URINATING IN THE URINAL WITHOUT DIFFICULTY. HE IS CONFUSED, NOT REMEMBERING WHERE HE IS OR WHY HE IS HERE. VSS. NO ACUTE CHANGES THIS SHIFT. HEELS FLOATED D/T COMPLAINTS OF HEEL SORENESS, NO WOUNDS VISUALIZED. HE HAS REMAINED ON ROOM AIR THROUGHOUT THE SHIFT. HE DOES NOT USE HIS CALL LIGHT. HE IS LYING IN BED WITH THE BED ALARM ON. CALL LIGHT IS IN REACH AND HE WAS, AGAIN, ENCOURAGED TO UTILIZE IT.
--- NOTE | 2019-08-16 11:39 | NUR ---
DISCUSSED PT'S STATUS WITH DR ARMENDARIZ EARLIER TODAY HE WAS HERE TO SEE PT, SEE ORDERS. PT OK TO HAVE NO IV. DR DAILEY PT CONT TO BE CONFUSED.
--- NOTE | 2019-08-16 18:17 | NUR ---
SHIFT SUMMARY PT EATING AND DRINKING, VOIDING. REPORTS PASSING GAS. PT BEEN ASSISTED WITH ADL'S MULT TIMES. PT BEEN REDIRECTED MULT TIMES. PT BED ALARM IN PLACE. FAMILY BEEN HERE THIS EVENING PT HAS NOT ATTEMPTED OOB SINCE FAMILY HERE (BACK FROM HAVING TO GO TO [facility] THIS AM). BED ALARM REMAINS IN PLACE. PT BEEN REPOSITIONED MULT TIMES. PT BEEN DENYING PAIN AFTER REPOSITIONED. TEDS/PAS IN PLACE.
--- NOTE | 2019-08-17 05:40 | NUR ---
SHIFT SUMMARY: YOSSI RESTED OFF AND ON THROUGHOUT THE SHIFT. HE REMAINS CONFUSED AND FREQUENTLY YELLS OUT IN HIS SLEEP SOMETIMES CALLING FOR HIS MOTHER, HIS , ETC. HE DOES REORIENT, BUT CALLS OUT AFTER HE FALLS ASLEEP AGAIN. HE HAS MAINTAINED HIS OXYGEN SATURATIONS AT 90% OR ABOVE ORA. PARTNER/CAREGIVER AT BEDSIDE WHO STATES THAT HE RARELY HAS NIGHTMARES AT HOME AND HAS NEVER TRIED MEDICATIONS TO AID WITH THEM. HE PULLED ONE OF HIS SURGICAL DRESSINGS OFF DURING THE NIGHT, THE DRESSING WAS REPLACED AND BABAR ARE INTACT. HE IS USING THE URINAL WITHOUT DIFFICULTY SO LONG IT IS WITHIN REACH. HE DOES NOT USE HIS CALL LIGHT. HE IS TOLERATING PO INTAKE WELL. HE IS LYING IN BED WITH THE BED ALARM ON.
--- NOTE | 2019-08-17 15:50 | NUR ---
DISCHARGE REPORT CALLED TO RAMIRO AT [facility] AT 1500. PT LEFT WITH TRANSPORT AT 1530. DRESSINGS, INSTRUCTIONS AND SCRIPTS SENT WITH PT TO [facility].
== END 2019-08-17 15:44 | DRG 481 ==
LOC: ER 14:45 → SURS 19:32
PROVIDERS: Emergency Medicine; Internal Medicine; Orthopaedic Surgery; ADMIT Student in an Organized Health Care Education/Training Program
PROC: 0QS606Z Reposition Right Upper Femur with Intramedullary Internal Fixation Device, Open Approach (ICD-10-PCS; principal; 2019-08-13 12:30)
DX: S72.141A Displaced intertrochanteric fracture of right femur, initial encounter for closed fracture (principal); N17.9 Acute kidney failure, unspecified; N39.0 Urinary tract infection, site not specified; W19.XXXA Unspecified fall, initial encounter; I25.10 Atherosclerotic heart disease of native coronary artery without angina pectoris; G47.33 Obstructive sleep apnea (adult) (pediatric); E11.22 Type 2 diabetes mellitus with diabetic chronic kidney disease; N18.3 Chronic kidney disease, stage 3 (moderate); E78.5 Hyperlipidemia, unspecified; K21.9 Gastro-esophageal reflux disease without esophagitis; J44.9 Chronic obstructive pulmonary disease, unspecified; E11.42 Type 2 diabetes mellitus with diabetic polyneuropathy; E66.9 Obesity, unspecified; F03.90 Unspecified dementia, unspecified severity, without behavioral disturbance, psychotic disturbance, mood disturbance, and anxiety; Z95.5 Presence of coronary angioplasty implant and graft; Z95.1 Presence of aortocoronary bypass graft; Z87.891 Personal history of nicotine dependence; Z79.82 Long term (current) use of aspirin; Z79.84 Long term (current) use of oral hypoglycemic drugs; Z79.899 Other long term (current) drug therapy
CPT/HCPCS: 36415; 71045; 73502; 80048; 80053; 81001; 82947; 83880; 85025; 85610; 86850; 86900; 86901; 87077; 87086; 87186; 93005; 93010; 94762; 96361; 96374; 96376; 97110; 97112; 97162; 97166; 97530; 99285-25; A9270; C1713; J0696; J1100; J1650; J2370; J2405; J2704; J2710; J2765; J3010; J7030; J7120

== ENCOUNTER 2020-04-29 22:53 | Inpatient (IN) | payer OTHER ==
[~2020-04-29] VITALS: Ht 177.8 cm; Wt 105.0 kg
[~2020-04-29 22:53] MED LIST changes: +ASCO500 PO; +ASPI325EC PO; +Amaryl1 MG PO; +THERA1 EACH PO; +Toprol Xl25 MG PO; +VITAMIN D325 MCG PO; +[UNRECOGNIZED DRUG - OTHER] PO
[2020-04-29 23:39] LABS: BASOPHILS PERCENT AUTO 1 % (0-2); EOSINOPHILS ABSOLUTE AUTO 0.01 K/mm3 (0.00-0.68); EOSINOPHILS PERCENT AUTO 0 % (0-6); Hematocrit 44.6 % (37.0-53.0); Hemoglobin 14.7 g/dL (13.5-17.5); IMMATURE GRAN ABSOLUTE AUTO 0.39 K/mm3 (0.00-0.10); IMMATURE GRAN PERCENT AUTO 2 % (0-1); LYMPHOCYTES ABSOLUTE AUTO 0.57 K/mm3 (0.84-5.20); LYMPHOCYTES PERCENT AUTO 3 % (21-46); MONOCYTES ABSOLUTE AUTO 1.24 K/mm3 (0.16-1.47); MONOCYTES PERCENT AUTO 6 % (4-13); Mean Corpuscular HGB 31.3 pg (26.0-34.0); Mean Corpuscular Volume 95 fL (80-100); Mean Platelet Volume 10.2 fL (9.1-12.4); NEUTROPHILS ABSOLUTE AUTO 19.06 K/mm3 (1.96-9.15); NEUTROPHILS PERCENT AUTO 89 % (41-73); Platelet Count 205 K/mm3 (150-400); RDW Coefficient Variation 13.2 % (11.7-14.2); RDW Standard Deviation 46.2 fL (35.1-46.3); Red Blood Cell Count 4.69 M/mm3 (4.30-5.90); White Blood Cell Count 21.37 K/mm3 (4.00-11.30)
[2020-04-29 23:45] LABS: PCO2 Arterial 30.3 mmHg (35-45); PO2 Arterial 69.8 mmHg (80-100); pH Blood Arterial 7.38 (7.35-7.45)
[2020-04-29 23:59] LABS: Alanine Aminotransfer (ALT/SGP 23 U/L (12-78); Albumin, Blood 3.1 g/dL (3.4-5.0); Albumin/Globulin Ratio 0.6 (0.8-1.8); Alk Phos 197 U/L (50-136); Anion Gap 10 mmol/L (6-16); Aspartate Aminotrans (AST/SGOT 13 U/L (12-37); Bilirubin, Total 0.5 mg/dL (0.1-1.0); Blood Urea Nitrogen 50 mg/dL (8-24); Bun/Creatinine Ratio 11.5 (12.0-20.0); CO2, Blood 21 mmol/L (21-32); Calcium, Blood 9.3 mg/dL (8.5-10.1); Chloride, Blood 99 mmol/L (98-108); Creatinine, Blood 4.35 mg/dL (0.60-1.20); Globulin, Blood 4.8 g/dL (2.2-4.0); Glomerular Filtration Rate 14 (60-); Glucose, Blood 533 mg/dL (70-99); Potassium, Blood 5.3 mmol/L (3.5-5.5); Sodium, Blood 130 mmol/L (136-145); Total Protein, Blood 7.9 g/dL (6.4-8.2); Troponin I <0.015 ng/mL (0.000-0.040)
[2020-04-30 01:13] LABS: Source, Urine Voided
[2020-04-30 01:18] LABS: Appearance, Urine Hazy (Clear); Bilirubin, Urine Neg (Neg); Blood, Urine 4+ (Neg); Color, Urine Yellow (P-Yellow); Glucose Qualitative, Urine 4+ (Neg); Ketones, Urine Neg (Neg); Leukocyte Esterase, Urine 3+ (Neg); Nitrite, Urine Pos (Neg); Protein, Urine 2+ (Neg); Urobilinogen, Urine NORM (Normal)
[2020-04-30 01:25] LABS: Bacteria Mod /hpf; Red Blood Cells, Urine 0-2 /hpf (0-2); Squamous Epithelial Cells Not Seen /hpf (Few); White Blood Cells, Urine 50-100 /hpf (0-5)
--- NOTE | 2020-04-30 04:38 | NUR ---
SHIFT ADMIT ASSESSMENT PT ARRIVED TO PCU VIA GURNEY. HE WAS SLID OVER TO BED WITH NO ISSUES. HE WAS ABLE TO HELP WITH TURNING AND REPOSITIONING. VITALS ARE STABLE, BUT HE DOES APPEAR TO BE WORKING TO CATCH HIS BREATHE. HE STATES THIS IS NO MORE CHALLENGING THAN NORMAL. SATS ARE 97% ON RA. WILL CON'T TO MONITOR. PT HAS TWO PERIPHERAL IV'S THAT ARE BOTH PATENT. WILL START IV FLUIDS ORDERED. PT IS REFUSING FLU SHOT, LOVENOX, PAS STOCKINGS AND AM PROTONIX AT THIS TIME. STATES HE HASN'T HAD ANYTHING IN MONTHS AND DOESN'T NEED IT NOW. MORALES CATH IN PLACE DRAINING CLEAR YELLOW URINE. NO EDEMA NOTED IN EXTREMITIES. PT STATES HE IS FAIRLY INDEPENDENT AT HOME, BUT THAT GIRLFRIEND DOES MOST OF THE CHORES. PT WAS ABLE TO GIVE A HEALTH HISTORY, BUT NOT SURE OF EVERYTHING IN HIS PAST HE STATES. OVERALL PT APPEARS TO BE TIRED AND WANTS TO BE LEFT ALONE. HE IS COOPERATIVE WITH HIS CARE. CALL LIGHT IN REACH AND PT DEMONSTRATED USE. WILL CON'T TO MONITOR AND KEEP PT SAFE T/O REMAINDER OF SHIFT.
--- NOTE | 2020-04-30 05:28 | NUR ---
SHIFT SUMMARY PT IS STABLE AT THIS TIME. HE TALKS IN HIS SLEEP. WHILE RESTING WITH EYES CLOSED HE IS NOT SOB AND RR IS STEADY, BUT WHEN AWAKE IS PRESENTS VERY SOB. VITALS CON'T TO BE STABLE WITH NO CHANGES FROM BASELINE. DR MITCHELL WAS CALLED REGARDING PT'S PROLONGED ELEVATED BS. IV INSULIN WAS GIVEN AND S/S INCREASED TO MED. SEE EMAR FOR ALL ADMINISTERED MEDICATIONS. CALL LIGHT IN REACH. WILL CON'T TO MONTIOR AND KEEP PT SAFE TILL REPORT TO ONCOMING RN.
--- NOTE | 2020-04-30 08:05 | NUR ---
PATIENT COOPERATIVE WITH AM ASSESSMENT. A/OX3 AT THIS TIME. ULTRASOUND IN TO PERFORM PROCEDURE. CALL LIGHT IN REACH, BED ALARM ON.
[2020-04-30 12:16] LABS: BASOPHILS ABSOLUTE AUTO 0.08 K/mm3 (0.00-0.23); BASOPHILS PERCENT AUTO 0 % (0-2); EOSINOPHILS ABSOLUTE AUTO 0.01 K/mm3 (0.00-0.68); EOSINOPHILS PERCENT AUTO 0 % (0-6); Hematocrit 44.7 % (37.0-53.0); Hemoglobin 14.7 g/dL (13.5-17.5); IMMATURE GRAN ABSOLUTE AUTO 0.41 K/mm3 (0.00-0.10); IMMATURE GRAN PERCENT AUTO 2 % (0-1); LYMPHOCYTES PERCENT AUTO 3 % (21-46); MONOCYTES ABSOLUTE AUTO 1.23 K/mm3 (0.16-1.47); MONOCYTES PERCENT AUTO 6 % (4-13); Mean Corpuscular HGB 31.1 pg (26.0-34.0); Mean Corpuscular HGB Conc 32.9 g/dL (31.5-36.5); Mean Corpuscular Volume 95 fL (80-100); NEUTROPHILS ABSOLUTE AUTO 18.07 K/mm3 (1.96-9.15); NEUTROPHILS PERCENT AUTO 89 % (41-73); RDW Coefficient Variation 13.2 % (11.7-14.2); RDW Standard Deviation 46.7 fL (35.1-46.3); Red Blood Cell Count 4.72 M/mm3 (4.30-5.90)
[2020-04-30 12:43] LABS: Mean Platelet Volume 11.1 fL (9.1-12.4); Platelet Count 125 K/mm3 (150-400)
[2020-04-30 13:25] LABS: Albumin, Blood 2.6 g/dL (3.4-5.0); Albumin/Globulin Ratio 0.6 (0.8-1.8); Bilirubin, Total 0.4 mg/dL (0.1-1.0); Bun/Creatinine Ratio 10.6 (12.0-20.0); Calcium, Blood 8.5 mg/dL (8.5-10.1); Creatinine, Blood 4.54 mg/dL (0.60-1.20); Globulin, Blood 4.5 g/dL (2.2-4.0); Potassium, Blood 4.5 mmol/L (3.5-5.5); Total Protein, Blood 7.1 g/dL (6.4-8.2)
--- NOTE | 2020-04-30 13:38 | NUR ---
DR. ROCHA AT BEDSIDE. DISCUSSED POC. STATES HE WILL PUT IN ORDERS. PATIENT AND SIGNIFICANT OTHER AGREEABLE TO TREATMENT PLAN.
--- NOTE | 2020-04-30 16:40 | NUR ---
CALLED DR. ROCHA. NOTIFIED HIM OF PATIENT'S TEMP OF 100.9. HE SAID THAT HE WOULD NOT TREAT THAT TEMPERATURE BUT THAT I COULD GIVE TYLENOL 650 MG PO Q4H PRN DISCOMFORT.
--- NOTE | 2020-04-30 17:00 | NUR ---
DR. LATHAM RETURNED CALL. NOTIFIED HIM OF URINE OUTPUT THIS SHIFT, IV FLUID AND RATE, AND BLOOD PRESSURE. ORDERS RECEIVED FOR FLOMAX, CT KUB NO CONTRAST, CHANGE TO NS AT 75 MLS/HR, AND PSA SCREEN IN AM, SEE ORDERS.
--- NOTE | 2020-04-30 19:26 | NUR ---
SHIFT SUMMARY: PATIENT A/OX3. TYLENOL GIVEN FOR PAIN WITH GOOD EFFECT. ON ROOM AIR, BREATHES LOUDLY BUT STATES THAT IT IS NORMAL FOR HIM, SPO2 IN 90'S ON RATre MORALES DRAINING CLEAR YELLOW URINE. CONSULT CALLED TO DR. LATHAM. UP TO RECLINER FOR DINNER THIS EVENING. AGREED TO BATH THIS AFTERNOON. THIS EVENING STATES THAT HE IS FEELING "MUCH BETTER". CALL LIGHT IN REACH. CHAIR ALARM ON.
--- NOTE | 2020-04-30 21:30 | NUR ---
NOTIFIED OF ABD/ADRENAL U/S RESULTS AT THIS TIME. NO NEW ORDERS WERE GIVEN. CHARGE NURSE NOTIFIED. NO ACUTE CHANGES NOTED WITH THE PT, HE CONTINUES TO DENY PAIN, URINE OUTPUT WNL, VSS.
[2020-05-01 03:42] LABS: BASOPHILS ABSOLUTE AUTO 0.05 K/mm3 (0.00-0.23); BASOPHILS PERCENT AUTO 0 % (0-2); EOSINOPHILS ABSOLUTE AUTO 0.03 K/mm3 (0.00-0.68); EOSINOPHILS PERCENT AUTO 0 % (0-6); Hematocrit 40.5 % (37.0-53.0); IMMATURE GRAN ABSOLUTE AUTO 0.25 K/mm3 (0.00-0.10); IMMATURE GRAN PERCENT AUTO 2 % (0-1); LYMPHOCYTES ABSOLUTE AUTO 0.61 K/mm3 (0.84-5.20); LYMPHOCYTES PERCENT AUTO 4 % (21-46); MONOCYTES ABSOLUTE AUTO 0.96 K/mm3 (0.16-1.47); MONOCYTES PERCENT AUTO 7 % (4-13); Mean Corpuscular HGB 30.6 pg (26.0-34.0); Mean Corpuscular HGB Conc 32.1 g/dL (31.5-36.5); Mean Corpuscular Volume 95 fL (80-100); Mean Platelet Volume 9.9 fL (9.1-12.4); NEUTROPHILS ABSOLUTE AUTO 12.04 K/mm3 (1.96-9.15); NEUTROPHILS PERCENT AUTO 86 % (41-73); Platelet Count 143 K/mm3 (150-400); RDW Coefficient Variation 13.2 % (11.7-14.2); RDW Standard Deviation 46.7 fL (35.1-46.3); Red Blood Cell Count 4.25 M/mm3 (4.30-5.90); White Blood Cell Count 13.94 K/mm3 (4.00-11.30)
[2020-05-01 04:10] LABS: Albumin, Blood 2.4 g/dL (3.4-5.0); Anion Gap 10 mmol/L (6-16); Blood Urea Nitrogen 56 mg/dL (8-24); Bun/Creatinine Ratio 11.1 (12.0-20.0); CO2, Blood 17 mmol/L (21-32); Calcium, Blood 8.7 mg/dL (8.5-10.1); Chloride, Blood 110 mmol/L (98-108); Creatinine, Blood 5.03 mg/dL (0.60-1.20); Glomerular Filtration Rate 12 (60-); Glucose, Blood 272 mg/dL (70-99); Magnesium, Blood 1.7 mg/dL (1.6-2.4); Phosphorus, Blood 3.9 mg/dL (2.5-4.9); Potassium, Blood 4.4 mmol/L (3.5-5.5); Prostate Specific Antigen 0.773 ng/mL (0.000-4.000); Sodium, Blood 137 mmol/L (136-145)
--- NOTE | 2020-05-01 06:17 | NUR ---
SUMMARY PT HAS BEEN VERY RESTLESS THROUGH THE NIGHT, HE WAS REPORTED TO TALK IN HIS SLEEP AND HE DID. PT WILL YELL OUT AND APPEARS TO BE DREAMING/CONFUSED. HE PULLED HIS IV OUT AND HAS ATTEMPTED TO CLIMB OOB/DISROBE MULTIPLE TIMES, HE WILL REORIENT AFTER WAKING UP. NEW IV IN LEFT WRIST, NS INFUSING @ 75 ML/HR, DENIES SOB, LUNGS CLEAR/DIM IN BASES, O2 REMAINS >94% ON RA, BED ALARM IS ON FOR SAFETY, PT REORIENTED PRN, MORALES REMAINS PATENT, URINE OUTPUT WNL. WCTM, CALL LIGHT IN REACH.
--- NOTE | 2020-05-01 16:05 | NUR ---
SUMMARY: PT MAINTAINS ALERT AND ORIENTED, CONTINUES ON ROOM AIR AND IN SINUS RHYTHM ON MONITOR. URINALYSIS IS POSITIVE FOR PRELIMINARY GROWTH. PT RECEIVES FIRST DOSE OF CLINDAMYCIN. PT TRANSFERED TO [facility], REPORT GIVEN TO JOSR MOLINA TO RECEIVE PT.
[2020-05-02 10:18] LABS: Antinuclear Antibody Screen Positive (Negative)
[2020-05-03 14:09] LABS: A/G RATIO 0.8 (0.7-1.7); ALBUMIN 2.5 g/dL (2.9-4.4); ALPHA-1-GLOBULIN 0.4 g/dL (0.0-0.4); ALPHA-2-GLOBULIN 1.3 g/dL (0.4-1.0); BETA GLOBULIN 0.8 g/dL (0.7-1.3); GAMMA GLOBULIN 0.9 g/dL (0.4-1.8); GLOBULIN, TOTAL 3.4 g/dL (2.2-3.9); IMMUNOGLOBULIN A, QN, SERUM 193 mg/dL (61-437); IMMUNOGLOBULIN G, QN, SERUM 567 mg/dL (603-1613); IMMUNOGLOBULIN M, QN, SERUM 481 mg/dL (15-143); M-SPIKE Not Observed g/dL (Not Observed); PROTEIN, TOTAL, SERUM 5.9 g/dL (6.0-8.5)
[2020-05-04 11:10] LABS: ANTIGLOMERULAR BM AB 5 units (0-20)
[2020-05-04 13:10] LABS: ANA DIRECT Negative (Negative); ANTIMYELOPEROXIDASE (MPO) ABS <9.0 U/mL (0.0-9.0); ANTIPROTEINASE 3 (PR-3) ABS <3.5 U/mL (0.0-3.5); ATYPICAL PANCA <1:20 titer (Neg:<1:20); CYTOPLASMIC (C-ANCA) <1:20 titer (Neg:<1:20); PERINUCLEAR (P-ANCA) <1:20 titer (Neg:<1:20)
[2020-05-04 13:14] LABS: ANA Pattern Homogenous
== END 2020-05-01 15:50 | disposition short-term general hospital (02) | DRG 871 ==
LOC: ER 22:53 → PCU 04-30 02:56
PROVIDERS: Emergency Medicine; Internal Medicine Gastroenterology; Internal Medicine Nephrology; ADMIT Internal Medicine
DX: A41.89 Other specified sepsis (principal); E11.00 Type 2 diabetes mellitus with hyperosmolarity without nonketotic hyperglycemic-hyperosmolar coma (NKHHC); N17.9 Acute kidney failure, unspecified; N39.0 Urinary tract infection, site not specified; N20.1 Calculus of ureter; E87.2 Acidosis; Y92.9 Unspecified place or not applicable; Y99.9 Unspecified external cause status; V48.3XXA Unspecified car occupant injured in noncollision transport accident in nontraffic accident, initial encounter; I25.10 Atherosclerotic heart disease of native coronary artery without angina pectoris; J44.9 Chronic obstructive pulmonary disease, unspecified; K21.9 Gastro-esophageal reflux disease without esophagitis; Z98.52 Vasectomy status; Z87.891 Personal history of nicotine dependence; N18.30 Chronic kidney disease, stage 3 unspecified; E11.42 Type 2 diabetes mellitus with diabetic polyneuropathy; J84.10 Pulmonary fibrosis, unspecified; E78.5 Hyperlipidemia, unspecified; G47.33 Obstructive sleep apnea (adult) (pediatric); I12.9 Hypertensive chronic kidney disease with stage 1 through stage 4 chronic kidney disease, or unspecified chronic kidney disease; N13.9 Obstructive and reflux uropathy, unspecified; D63.1 Anemia in chronic kidney disease; R65.20 Severe sepsis without septic shock; E11.22 Type 2 diabetes mellitus with diabetic chronic kidney disease
CPT/HCPCS: 36415; 36600; 51702; 71045; 74176; 76770; 80053; 80069; 81001; 82784; 82803; 82947; 83036; 83516; 83520; 83605; 83735; 83880; 84165; 84443; 84484; 84550; 85025; 86038; 86039; 86256; 86334; 87040; 87077; 87086; 87186; 93005; 93010; 94640; 94760; 96365; 99285-25; A9270; A9270-GY; C9113; G0103; J0696; J1650; J1815; J7030

== ENCOUNTER → 2020-08-02 | Outpatient (CLI) | payer OTHER ==
[2020-08-02 16:18] LABS: BASOPHILS ABSOLUTE AUTO 0.04 K/mm3 (0.00-0.23); BASOPHILS PERCENT AUTO 0 % (0-2); EOSINOPHILS ABSOLUTE AUTO 0.23 K/mm3 (0.00-0.68); EOSINOPHILS PERCENT AUTO 2 % (0-6); Hematocrit 39.9 % (37.0-53.0); Hemoglobin 12.7 g/dL (13.5-17.5); IMMATURE GRAN ABSOLUTE AUTO 0.08 K/mm3 (0.00-0.10); IMMATURE GRAN PERCENT AUTO 1 % (0-1); LYMPHOCYTES ABSOLUTE AUTO 1.69 K/mm3 (0.84-5.20); LYMPHOCYTES PERCENT AUTO 12 % (21-46); MONOCYTES ABSOLUTE AUTO 0.92 K/mm3 (0.16-1.47); MONOCYTES PERCENT AUTO 7 % (4-13); Mean Corpuscular HGB 31.6 pg (26.0-34.0); Mean Corpuscular HGB Conc 31.8 g/dL (31.5-36.5); Mean Corpuscular Volume 99 fL (80-100); Mean Platelet Volume 10.1 fL (9.1-12.4); NEUTROPHILS ABSOLUTE AUTO 11.19 K/mm3 (1.96-9.15); NEUTROPHILS PERCENT AUTO 79 % (41-73); Platelet Count 314 K/mm3 (150-400); RDW Standard Deviation 51.5 fL (35.1-46.3); Red Blood Cell Count 4.02 M/mm3 (4.30-5.90); White Blood Cell Count 14.15 K/mm3 (4.00-11.30)
== END | disposition home or self-care (01) ==
LOC: LAB EV 15:55 → LAB SHORT 15:55
PROVIDERS: Family Medicine
DX: D64.9 Anemia, unspecified (principal)
CPT/HCPCS: 36415; 85025

== ENCOUNTER 2021-04-04 15:07 | Inpatient (IN) | payer OTHER ==
[~2021-04-04] VITALS: Ht 170.2 cm; Wt 98.6 kg
[2021-04-04 16:15] LABS: BASOPHILS ABSOLUTE AUTO 0.01 K/mm3 (0.00-0.23); BASOPHILS PERCENT AUTO 0 % (0-2); EOSINOPHILS PERCENT AUTO 0 % (0-6); IMMATURE GRAN ABSOLUTE AUTO 0.04 K/mm3 (0.00-0.10); IMMATURE GRAN PERCENT AUTO 1 % (0-1); LYMPHOCYTES ABSOLUTE AUTO 0.66 K/mm3 (0.84-5.20); LYMPHOCYTES PERCENT AUTO 10 % (21-46); MONOCYTES ABSOLUTE AUTO 0.64 K/mm3 (0.16-1.47); MONOCYTES PERCENT AUTO 9 % (4-13); Mean Corpuscular HGB 31.4 pg (26.0-34.0); Mean Corpuscular HGB Conc 33.3 g/dL (31.5-36.5); Mean Corpuscular Volume 94 fL (80-100); Mean Platelet Volume 11.1 fL (9.1-12.4); NEUTROPHILS ABSOLUTE AUTO 5.49 K/mm3 (1.96-9.15); NEUTROPHILS PERCENT AUTO 80 % (41-73); Platelet Count 92 K/mm3 (150-400); RDW Coefficient Variation 13.9 % (11.7-14.2); RDW Standard Deviation 49.1 fL (35.1-46.3); White Blood Cell Count 6.84 K/mm3 (4.00-11.30)
[2021-04-04 16:35] LABS: Alanine Aminotransfer (ALT/SGP 33 U/L (12-78); Albumin/Globulin Ratio 0.7 (0.8-1.8); Alk Phos 105 U/L (50-136); Anion Gap 9 mmol/L (6-16); Aspartate Aminotrans (AST/SGOT 52 U/L (12-37); Bilirubin, Total 0.3 mg/dL (0.1-1.0); Blood Urea Nitrogen 40 mg/dL (8-24); Bun/Creatinine Ratio 22.2 (12.0-20.0); CO2, Blood 20 mmol/L (21-32); Calcium, Blood 8.9 mg/dL (8.5-10.1); Chloride, Blood 109 mmol/L (98-108); Globulin, Blood 4.4 g/dL (2.2-4.0); Glomerular Filtration Rate 36 (60-); Glucose, Blood 195 mg/dL (70-99); Potassium, Blood 4.4 mmol/L (3.5-5.5); Sodium, Blood 138 mmol/L (136-145); Total Protein, Blood 7.4 g/dL (6.4-8.2); Troponin I <0.015 ng/mL (0.000-0.040)
[2021-04-04] MEDS ORDERED: METF500 PO (17:21)
[2021-04-04 17:35] LABS: SARS-Cov-2 (COVID-19) PCR, MMC POSITIVE (NEGATIVE)
--- NOTE | 2021-04-04 23:48 | NUR ---
TRANSFER NOTE REPORT FROM DMITRI ALFARO RN. PT ARRIVES TO FLOOR BY DARY ON 4L OF OXYGEN BY HEIDI. IV LR INFUSING. PT WEAK AND TWO PERSON ASSIST TO BED. PT ORIENTED TO CALL LIGHT AND UNIT. ISOLATION MAINTAINED.
--- NOTE | 2021-04-05 00:01 | NUR ---
PT IS SNORING AND ASLEEP DURING ADMISSION AND ASSESSMENT. PT REFUSED LOVENOX INJECTION TONIGHT.
--- NOTE | 2021-04-05 00:38 | NUR ---
HOSPITALIST CONTACTED REGARDING THE LACK OF OXYGEN AND GLUCOSE ORDERS ON ADMIT. ORDERS PLACED FOR OXYGEN THERAPY TITRATION AND CHEMSTICKS ACHS ALONG WITH CORRECTION INSULIN.
[2021-04-05 01:32] LABS: PCO2 Arterial 43.4 mmHg (35-45); PO2 Arterial 83.3 mmHg (80-100); pH Blood Arterial 7.31 (7.35-7.45)
--- NOTE | 2021-04-05 01:42 | NUR ---
SENIOR COST ESTIMATOR RAPID RESPONSE CALLED WHEN CONTINUED SATURATION IN THE 70S PER RT AFTER PT PLACED ON STOMACH AND AIRVO. PLAN TO KEEP PT ON AIRVO AND START IV REMDESIVIR WITH NEED FOR CONTINUOUS PULSE OX.
--- NOTE | 2021-04-05 04:49 | NUR ---
GEODESIST SUMMARY ADMITTED FOR ACUTE HYPOXEMIA SECONDARY TO COVID. PT IS A DNR. PT WAS ON 4L OF OXYGEN BY NC WHEN ADMITTED TO THE FLOOR. PT UP TO TRANSFER FROM [facility] TO BED WITH SIGNIFICANT INCREASE IN RESPIRATORY RATE AND DECREASE IN SATURATION. RT CONSULTED AND PT INCREASED TO HIGH FLOW CANNULA WITH A NRB ON TOP. PT UNABLE TO KEEP NRB ON, SATURATIONS CONTINUE TO DECLINE INTO THE 70S PER RT. RT RECOMMEND PUTTING PT ON AIRVO AND PRONING. PT WITH DECREASED RESPONSIVENESS TO VERBAL - RESPONDING TO PAIN WITH GRUNTS AND WITHDRAWAL OF LIMBS. IRRIGATIONIST DESIGNER CALLED. PT SATURATION BROUGHT UP TO 96% ON 60 L WITH 73% FIO2. PT CONTINUES TO REST THROUGH THE NIGHT ON HIS LEFT SIDE. PT GIVEN ONE DOSE OF REMDESIVIR. ISOLATION MAINTAINED.
[2021-04-05 05:13] LABS: BASOPHILS ABSOLUTE AUTO 0.01 K/mm3 (0.00-0.23); BASOPHILS PERCENT AUTO 0 % (0-2); EOSINOPHILS PERCENT AUTO 0 % (0-6); Hematocrit 45.1 % (37.0-53.0); Hemoglobin 14.9 g/dL (13.5-17.5); IMMATURE GRAN ABSOLUTE AUTO 0.03 K/mm3 (0.00-0.10); IMMATURE GRAN PERCENT AUTO 1 % (0-1); LYMPHOCYTES ABSOLUTE AUTO 0.41 K/mm3 (0.84-5.20); LYMPHOCYTES PERCENT AUTO 7 % (21-46); MONOCYTES ABSOLUTE AUTO 0.39 K/mm3 (0.16-1.47); MONOCYTES PERCENT AUTO 7 % (4-13); Mean Corpuscular HGB 31.2 pg (26.0-34.0); Mean Corpuscular Volume 95 fL (80-100); Mean Platelet Volume 12.3 fL (9.1-12.4); NEUTROPHILS ABSOLUTE AUTO 5.09 K/mm3 (1.96-9.15); NEUTROPHILS PERCENT AUTO 86 % (41-73); Platelet Count 79 K/mm3 (150-400); RDW Coefficient Variation 13.9 % (11.7-14.2); RDW Standard Deviation 49.3 fL (35.1-46.3); Red Blood Cell Count 4.77 M/mm3 (4.30-5.90); White Blood Cell Count 5.93 K/mm3 (4.00-11.30)
--- NOTE | 2021-04-05 05:40 | NUR ---
THIS RN FOUND PT WITH AIRVO PULLED OUT OF NOSE, NO PULSE OX ON, AND PT IS NOW ON BACK. PT SATURATING AT 80% ON RA. PT WOKEN UP AND TOLD THE IMPORTANCE OF WEARING THE OXYGEN AND PT NOW SATTING AT 91% WITH 60L AT 75% WHILE ON BACK. PT REFUSING TO PRONE AGAIN. WILL CONTINUE TO MONITOR OXYGEN SATURATION.
[2021-04-05 05:42] LABS: Albumin, Blood 2.7 g/dL (3.4-5.0); Albumin/Globulin Ratio 0.7 (0.8-1.8); Bilirubin, Total 0.2 mg/dL (0.1-1.0); Bun/Creatinine Ratio 25.2 (12.0-20.0); Calcium, Blood 8.6 mg/dL (8.5-10.1); Creatinine, Blood 1.63 mg/dL (0.60-1.20); Globulin, Blood 3.9 g/dL (2.2-4.0); Potassium, Blood 4.7 mmol/L (3.5-5.5); Total Protein, Blood 6.6 g/dL (6.4-8.2)
--- NOTE | 2021-04-05 05:59 | NUR ---
PT FOUND TO HAVE PULLED IV IN RIGHT HAND. IV PROTONIX HELD. PT TOO AGITATED AT THIS TIME TO PLACE ANOTHER. DECISION DISCUSSED WITH ANGIE WHITAKER RN, WHO AGREES.
--- NOTE | 2021-04-05 19:40 | NUR ---
SHIFT SUMMARY PT A/O X2. HE WAS FAIRLY UNRESPONSIVE THIS AM BUT THE DAY HAS GONE ON HE HAS BECOME RESPONSIVE. PT ON AIRVO AT 60L AND 75%. PT WILL OFTEN REMOVE HIS AIRVO AND DESAT INTO THE LOW 80'S. PHYSICIAN CONSULTED AND IT WAS DETERMINED THAT THE PATIENT WOULD POSSIBLY BE INTERESTED IN COMFORT CARE IF HIS CONDITION WERE TO DECLINE FURTHER. VSS. WILL REPORT TO ONCOMING RN.
--- NOTE | 2021-04-06 06:09 | NUR ---
SHIFT SUMMARY PATIENT ALERT AND ORIENTED X2. MEDICATED PER EMAR FOR PAIN. PATIENT DESATS EASILY WITH EXHERTION. SATS BEST LYING ON HIS LEFT SIDE. PATIENT IS CONFUSED AND IMPULSIVE AND WILL OFTEN PULL HIS OXYGEN OFF. IV PATENT AND FLUSHED. BED IN LOWEST POSITION WITH WHEELS LOCKED AND ALARM ON. CALL LIGHT WITHIN REACH. REPORT GIVEN TO ONCOMING RN.
--- NOTE | 2021-04-06 16:30 | NUR ---
04/06/21- pt was admitted for covid-19, day 2 in the hosptial. C/O worsening Shortness of Breath. has also has c/o of covid symptoms. Pt made wishes known of no DNR/DNI, comfort care measures. PT is unvaccinated prior to admission. At discharge, and will be discharged with home health services. -madhuri
--- NOTE | 2021-04-06 18:36 | NUR ---
SHIFT SUMMARY PT HAD A DIFFICULT SHIFT TODAY. HE HAS BECOME INCREASINGLY MORE CONFUSED T/O THE SHIFT AND HAS HAD A DIFFICULT TIME MAINTAINING O2 SATS >86%. HE IS CURRENTLY ON AIRVO AT 60 LITERS AND 85% O2. WHEN HE DESATS IT SOMETIMES TAKES A WHILE FOR HIS O2 TO COME BACK UP. TRIED A NON-REBREATHER OVER THE AIRVO, THIS WORKED TO INCREASE HIS O2 SATS BUT HE DOES NOT KEEP IT ON. THIS AM HE ALSO VOIDED 600 OF COLA COLORED URINE. HE HAS NOT VOIDED SINCE. PT HAVING HALLUCINATIONS AND NEEDS A LOT OF REDIRECTION. UTILIZED A 1:1 SITTER FOR PART OF THE SHIFT. ALSO UTILIZED PRONING IN ORDER TO INCREASE O2 SATURATION. PT IS ABLE TO TOLERATE THIS FOR SHORT PERIODS OF TIME. WILL REPORT TO ONCOMING RN.
--- NOTE | 2021-04-06 19:45 | NUR ---
PHYSICIAN COMMUNICATION CONTACTED GREENHOUSE SPECIALIST PHYSICIAN, DR MCGHEE, TO NOTIFY HER THAT THE PATIENT WAS CONFUSED, TRYING TO GET OUT OF BED, AND WOULD NOT LEAVE HIS OXYGEN ON. DR MCGHEE ORDERED 5 MG ZYPREXA IM Q4 PRN FOR AGITATION.
[2021-04-06 21:16] LABS: Source, Urine Voided
[2021-04-06 21:20] LABS: Bilirubin, Urine Neg (Neg); Blood, Urine 5+ (Neg); Glucose Qualitative, Urine Neg (Neg); Ketones, Urine 1+ (Neg); Leukocyte Esterase, Urine 2+ (Neg); Nitrite, Urine Neg (Neg); Protein, Urine 4+ (Neg); Urobilinogen, Urine NORM (Normal); pH, Urine 6.5 (5.0-8.0)
[2021-04-06 21:29] LABS: Appearance, Urine Turbid (Clear); Color, Urine Brown (P-Yellow)
[2021-04-06 21:31] LABS: Amorphous Heavy (0-Heavy); Bacteria Mod /hpf; Red Blood Cells, Urine TNTC /hpf (0-2); Squamous Epithelial Cells Rare /hpf (Few); Yeast/Fungi Urine Few /hpf
--- NOTE | 2021-04-06 22:22 | NUR ---
PHYSICIAN COMMUNICATION CONTACTED ESTHETICIAN AND MANAGER MEDICAL SPA PHYSICIAN, DR MCGHEE, TO NOTIFY HER THAT THE IM ZYPREXA WAS INEFFECTIVE FOR THE PATIENT'S AGITATION AND THAT WAS STILL PULLING HIS OXYGEN OFF AND DESATING A RESULT AND TRYING TO GET OUT OF BED. DR MCGHEE OKAYED BILATERAL SOFT WRIST, ASHLEE VEST, AND FOUR SIDE RAILS TO BE PLACED ON THE PATIENT.
--- NOTE | 2021-04-07 07:39 | NUR ---
CONTACTED PHERESIS NURSE PHYSICIAN, DR ARAIZA, AT 0150 TO NOTIFY HIM THAT THE PATIENT WAS UNABLE TO MAINTAIN HIS O2 SAT ABOVE 82 EVEN WITH HIM BEING ON AIRVO AND HAVING A NRB AT [address] ARAIZA ORDERED 10 MG ROXANOL Q4 PRN. CALLED DR ARAIZA AGAIN AT 0210 TO ASK FOR SOMETHING TO HELP WITH ANXIETY THE IM ZYPREXA WAS INEFFECTIVE. DR ARAIZA ORDERED 0.5-1 MG IV ATIVAN Q2 PRN AND SAID TO START WITH 0.5MG. THIS WAS EFFECTIVE AND PATIENT FELL ASLEEP SATING 89%. CALL LIGHT WITHIN REACH. REPORT GIVEN TO ONCOMING RN.
--- NOTE | 2021-04-07 08:06 | NUR ---
TP ALERT TO SELF AND FAM. AGITATED, FIGITING. PULLING. O2 78% ON 15 L NON-REBREATHER, AND AIRVO 60l WITH 90% FIO2. MEDICATED WITH ATIVAN AND ROXANOL FOR AIR HUNGER. IS SOME MORE CALM. SATS BUMP TO 80%, CALLED DR SU. HE TO CALL FAMILY AND SEE PLAN. NEXT STEP PER R/T IS BIPAP. WHICH PT AND FAMILY NOT COMFORTABLE WITH PER REPORT. DR TO CALL FAMILY.
--- NOTE | 2021-04-07 11:18 | NUR ---
04/07/21- notified by Dr. Victoria that pt is going to be placed on comfort care. -any
--- NOTE | 2021-04-07 16:21 | NUR ---
PLACED ORDERS FOR COMFORT CARE. COMPLETED RESTRAINTS. RESTRAINTS REMOVED. PT IN BED, PRESENTLY ON AIRVO AND NONREBREATHER. REMOVED CONT BIOX.
--- NOTE | 2021-04-07 19:45 | NUR ---
PT HAS BEEN MOVED TO COMFORT CARE TODAY. RESTRAINTS REMOVED. CONT BIOX REMOVED. WE ARE WATCHING TO TRY TO KEEP AIRVO AND MASK ON PT BEST POSSIBLE. KEEPING HIM COMFORTABLE. PERSON STATING HE WAS SON CAME IN TODAY. HE STATED AFTER UPDATE, HE WILL CALL BROTHER TO UPDATE HIM. HE WENT OUT FOR AIR, BUT NEVER CAME BACK. SECOND PERSON PERSON, KAREN HE IS ELDEST SON, . THE OTHER PORTER IS NOT SON, BUT CLOSE FRIEND. LADY CAME TO [facility], IS . IS , CAME TO ROOM. VISITED WITH HER . PT IS ON COMFORT CARE. BED IN LOW POSITOIN, PRESLEY LITE IN REACH, BED ALARM ON FOR SAFETY
--- NOTE | 2021-04-08 01:30 | NUR ---
PHYSICIAN COMMUNICATION CONTACTED DR ARAIZA TO NOTIFY HIM THAT THE PATIENT WAS COMFORT CARE AND RETAINING URINE AND TO ASK FOR AN ORDER FOR AN INDWELLING CATHETER. DR ARAIZA OKAYED THE ORDER.
[2021-04-08 02:25] LABS: Source, Urine Catheter
[2021-04-08 02:27] LABS: Bilirubin, Urine Neg (Neg); Blood, Urine 5+ (Neg); Glucose Qualitative, Urine Neg (Neg); Ketones, Urine 1+ (Neg); Leukocyte Esterase, Urine 2+ (Neg); Nitrite, Urine Neg (Neg); Protein, Urine 4+ (Neg); Urobilinogen, Urine NORM (Normal); pH, Urine 6.5 (5.0-8.0)
--- NOTE | 2021-04-08 02:31 | NUR ---
INDWELLING CATHETER INSERTED
[2021-04-08 03:01] LABS: Appearance, Urine Cloudy (Clear); Color, Urine Brown (P-Yellow)
[2021-04-08 03:02] LABS: Red Blood Cells, Urine TNTC /hpf (0-2); Squamous Epithelial Cells Not Seen /hpf (Few); White Blood Cells, Urine 0-2 /hpf (0-5)
[2021-04-08 03:03] LABS: Bacteria Mod /hpf; Yeast/Fungi Urine Mod /hpf
--- NOTE | 2021-04-08 07:10 | NUR ---
SHIFT SUMMARY PATIENT MEDICATED PER EMAR FOR PAIN, AIR HUNGER, AND AGITATION. CURRENTLY REMAINS ON AIRVO AND NONREBREATHER MASK. PATIENT APPEARS COMFORTABLE SINCE MORALES WAS INSERTED. CALL LIGHT WITHIN REACH. REPORT GIVEN TO ONCOMING RN.
--- NOTE | 2021-04-08 10:45 | NUR ---
Comfort Care Visit: Franklin is laying in the bed with his eyes closed. Moans and calls out at times. Airvo is in place. He was recently medicated with roxinol. Spoke with medical charge entry specialist who will plan to give pt some ativan for his restlessness. No other concerns at this time.
--- NOTE | 2021-04-08 13:04 | NUR ---
PT ON COMFORT CARE. DID MED FOR RESP WITH ROXANOL. FOR ANX WITH ATIVAN. RESTING BETTER NOW. REMOVED THE NON REBREATHER IT WAS BOTHERING HIM. SEEMS TO BE LESS PULLING AT AIRVO. WE CAN EXCHANGE WITH HI FLOW N/C TO SEE IF MAKES MORE COMFORTABLE. WILL WATCH AND SEE HOW TO ASSIST HIS COMFORT.
--- NOTE | 2021-04-08 14:13 | NUR ---
IN ROOM.. DISCUSSED MORPHINE TO ASSIST WITH ANX AND WORK BREATHING. GAVE 1 MG MORPHINE . PT MORE RELAXED IS SOME AGONAL BREATHING.
--- NOTE | 2021-04-08 15:40 | NUR ---
PT RESTING, RESP SHALLOW 14 / MIN. EYES CLOSED, RESTING. HI ISABEL N/C IN PLACE AT 15 L.
--- NOTE | 2021-04-08 16:41 | NUR ---
PT RESTING, NO LONGER MOANING. SHALLOW RESP. 12/MIN WITH SOME PAUSES.
--- NOTE | 2021-04-08 17:37 | NUR ---
171 PT PASSED. [facility]IFIED. [facility] , [place] NOTIFIED. SHE STATES WILL COME TO [facility] IN [place].
--- NOTE | 2021-04-08 18:49 | NUR ---
Theraputic conversation with not sure she can get ride in , advised her to stay home she is frail. updated nurisng quarter supervisor on her choice of funneral home. [facility] [place].
== END 2021-04-08 23:35 | DRG 177 ==
LOC: ER 15:07 → MEDS 22:22
PROVIDERS: Family Medicine; Internal Medicine; Physician Assistant; ADMIT Hospitalist
PROC: 3E0333Z Introduction of Anti-inflammatory into Peripheral Vein, Percutaneous Approach (ICD-10-PCS; principal; 2021-04-05)
PROC: 8E0ZXY6 Isolation (ICD-10-PCS; 2021-04-05)
PROC: XW033E5 Introduction of Remdesivir Anti-infective into Peripheral Vein, Percutaneous Approach, New Technology Group 5 (ICD-10-PCS; 2021-04-05)
DX: U07.1 COVID-19 (principal); J12.82 Pneumonia due to coronavirus disease 2019; J96.01 Acute respiratory failure with hypoxia; J44.0 Chronic obstructive pulmonary disease with (acute) lower respiratory infection; N17.9 Acute kidney failure, unspecified; Z66 Do not resuscitate; Z51.5 Encounter for palliative care; I25.10 Atherosclerotic heart disease of native coronary artery without angina pectoris; E88.09 Other disorders of plasma-protein metabolism, not elsewhere classified; I45.10 Unspecified right bundle-branch block; E86.0 Dehydration; K21.9 Gastro-esophageal reflux disease without esophagitis; E11.22 Type 2 diabetes mellitus with diabetic chronic kidney disease; N18.9 Chronic kidney disease, unspecified; Z88.5 Allergy status to narcotic agent; Z91.018 Allergy to other foods; Z98.890 Other specified postprocedural states; Z95.1 Presence of aortocoronary bypass graft; Z98.52 Vasectomy status; Z79.84 Long term (current) use of oral hypoglycemic drugs; Z78.1 Physical restraint status; Z95.5 Presence of coronary angioplasty implant and graft
CPT/HCPCS: 36415; 36600; 51701; 51702; 71045; 80053; 81001; 82728; 82803; 82947; 83880; 84145; 84484; 85025; 85379; 86141; 87086; 93005; 93010; 94640; 94762; 97110; 97161; 99285-25; A9270; C1751; C9113; J1100; J1650; J2060; J2270; J7050; J7120; U0004